=== PATIENT | female | born 1980 | race Caucasian/White ===

== ENCOUNTER 2016-03-21 08:07 | Emergency (ER) | payer BC, OTHER ==
[2016-03-21 08:28] VITALS: TEMP 98.5; BMI 22.6
[2016-03-21] MEDS ORDERED: ALBUTEROL SO4 2.5/IPRATROPIUM 0.5 INH SOL 3 ML VIAL.NEB. NEB ONE ×2 (09:13→09:25)
[2016-03-21] MEDS ORDERED: predniSONE 20 MG TABLET (UD) PO ONE (09:13)
--- NOTE | 2016-03-21 09:17 | PDOC ---
History of Present Illness - General Chief Complaint: Asthma Stated Complaint: SOB, ASTHMA Time Seen by Provider: 03/21/16 09:01 History Source: Patient Exam Limitations: No Limitations - History of Present Illness Initial Comments: 03/21/16 09:04 35-year-old female with history of asthma presents to the ED with complaints of shortness of breath on exertion, wheezing and cough since yesterday. Patient states took 4 DuoNeb times over the course with minimal movements and decided come to the ER today. Patient denies fever, chills, chest pain or palpitations. Patient states last time she was hospitalized was approximately 2 years ago but denies history of intubations. Timing/Duration: reports: yesterday Severity: reports: moderate Possible Cause: Yes: occasional episodes Modifying Factors: improves with: coughing Associated Symptoms: reports: cough, shortness of breath (with exertion), wheezing Past History - Past Medical History Allergies/Adverse Reactions: Allergies Allergy/AdvReac Type Severity Reaction Status Date / Time levofloxacin [From Levaquin] Allergy Verified 03/21/16 08:24 Home Medications: Ambulatory Orders Montelukast Na [Singulair -] 10 mg PO HS 12/26/13 Albuterol 0.083% Nebulizer Jaja [Ventolin 0.083% Nebulizer Soln -] 1 neb NEB Q6H PRN 30 Days 01/30/15 Albuterol Sulfate [Proair Respiclick] 90 mcg IH Q4HWA PRN 03/21/16 Budesonide/Formeterol Fumarate [SYMBICORT 160/4.5mcg -] 2 inh IH DAILY 03/21/16 Prednisone [Deltasone -] 40 mg PO DAILY #6 tablet 03/21/16 Asthma: Yes Thyroid Disease: Yes (HYPERTHYROID) - Surgical History Abdominal Surgery: Yes (marek inguinal hernia, left eye cataracts removal) - Reproductive History LMP Normal: Yes Is Patient Now?: No - Immunization History Immunization Up to Date: No - Psycho/Social/Smoking Cessation Hx Anxiety: No Suicidal Ideation: No Smoking Status: No Smoking History: Never smoked Have you smoked in the past 12 months: No Number of Cigarettes Smoked Daily: 0 Hx Alcohol Use: No Drug/Substance Use Hx: No Substance Use Type: None Hx Substance Use Treatment: No Patient Lives Alone: No Lives with/in: parents Respiratory Specific PMHX - Complaint Specific PMHX Bronchitis: Yes Review of Systems - Review of Systems Able to Perform ROS?: Yes Constitutional: No: Symptoms Reported HEENTM: No: Symptoms Reported Respiratory: Yes: Cough, SOB with Exertion, Wheezing Cardiac (ROS): No: Symptoms Reported ABD/GI: No: Symptoms Reported : No: Symptoms Reported Musculoskeletal: No: Symptoms Reported, Joint Stiffness Integumentary: No: Symptoms Reported Neurological: No: Symptoms reported Endocrine: No: Symptoms Reported Hematologic/Lymphatic: No: Symptoms Reported *Physical Exam - Vital Signs Last Vital Signs Temp Pulse Resp BP Pulse Ox 98.5 F 83 18 102/72 99 03/21/16 08:24 03/21/16 08:24 03/21/16 08:24 03/21/16 08:24 03/21/16 08:24 - Physical Exam General Appearance: Yes: Nourished, Appropriately Dressed. No: Apparent Distress HEENT: positive: EOMI, ILEANA. negative: Pale Conjunctivae Neck: positive: Normal Thyroid, Supple Respiratory/Chest: positive: Wheezing (on inspiration/expiration bilateral right greater than left). negative: Respiratory Distress, Accessory Muscle Use Cardiovascular: positive: Regular Rhythm, Regular Rate. negative: Murmur Gastrointestinal/Abdominal: positive: Soft. negative: Tenderness Extremity: positive: Normal Capillary Refill. negative: Pedal Edema Integumentary: positive: Normal Color, Warm, Moist Neurologic: positive: Motor Strength 5/5 (ambulatory) Medical Decision Making - Medical Decision Making 03/21/16 09:16 Pt with history of asthma complaining of shortness of breath wheezing and cough since yesterday. Patient on exam had bilateral wheezing without excessive muscle usage. patient speaking in full sentences. Patient O2 sat 100%. Respiratory rate 18-22. Patient ordered for by mouth steroids and DuoNeb here in the ER . 03/21/16 10:16 Pt states feeling much better and wants to go home. Patient will be given prednisone for discharge and has enough nebulized albuterol at home. Repeat vitals *DC/Admit/Observation/Transfer Diagnosis at time of Disposition: Asthma exacerbation Qualifiers: Asthma severity: mild persistent Qualified Code(s): J45.31 - Mild persistent asthma with (acute) exacerbation - Discharge Dispostion Disposition: HOME Condition at time of disposition: Improved - Prescriptions Prescriptions: Prednisone [Deltasone -] 40 mg PO DAILY #6 tablet - Patient Instructions Printed Discharge Instructions: Asthma -- Adult Additional Instructions: Please take prednisone starting tomorrow since you received the first dose here in the ER. Please use your nebulizer machine as needed for wheezing and coughing. If her symptoms return or worsen despite above recommendations return to the ED or follow-up with your PCP - Post Discharge Activity Work/School Note: Back to Work
[2016-03-21] MEDS ORDERED: predniSONE 20 MG TABLET (UD) ONE (09:24)
[2016-03-21 11:07] VITALS: BP 110/76; PULSE 84
== END 2016-03-21 11:07 | disposition home or self-care (01) ==
LOC: JER 08:07
PROC: 3E0F7GC Introduction of Other Therapeutic Substance into Respiratory Tract, Via Natural or Artificial Opening (ICD-10-PCS; principal; 2016-03-21)
DX: J45.31 Mild persistent asthma with (acute) exacerbation (principal); E05.90 Thyrotoxicosis, unspecified without thyrotoxic crisis or storm
CPT/HCPCS: 99282-25

== ENCOUNTER 2016-06-02 11:34 | Emergency (ER) | payer BC, OTHER ==
[2016-06-02 11:39] VITALS: BP 122/79; PULSE 92; TEMP 98; BMI 21.1
[2016-06-02] MEDS ORDERED: ACETAMINOPHEN 325 MG TABLET (FP) PO ONE (12:24)
--- NOTE | 2016-06-02 12:29 | PDOC ---
History of Present Illness - General Chief Complaint: Injury Stated Complaint: HEAD INJURY Time Seen by Provider: 06/02/16 12:06 History Source: Patient Exam Limitations: No Limitations - History of Present Illness Initial Comments: 06/02/16 12:24 While at work, patient was lifting a heavy box when she did not notice a low hanging shelf, and collided to the left upper aspect of her scalp to edge of a shelf. Was no LOC, however states had small bleed and thought should get checked 06/02/16 16:22 Occurred: reports: just prior to arrival, this morning Severity: reports: mild Pain Location: reports: head Method of Injury: Yes: direct blow Modifying Factors: improves with: None Loss of Consciousness: no loss of consciousness Associated Symptoms (Fall): denies symptoms Past History - Travel Traveled outside of the country in the last 30 days: No Close contact w/someone who was outside of country & ill: No - Past Medical History Allergies/Adverse Reactions: Allergies Allergy/AdvReac Type Severity Reaction Status Date / Time levofloxacin [From Levaquin] Allergy Verified 06/02/16 11:39 Home Medications: Ambulatory Orders NK [No Known Home Medication] 06/02/16 Asthma: Yes Thyroid Disease: Yes (HYPERTHYROID) - Surgical History Abdominal Surgery: Yes (marek inguinal hernia, left eye cataracts removal) - Immunization History Immunization Up to Date: No - Psycho/Social/Smoking Cessation Hx Anxiety: No Suicidal Ideation: No Smoking Status: No Smoking History: Never smoked Have you smoked in the past 12 months: No Number of Cigarettes Smoked Daily: 0 Information on smoking cessation initiated: No Hx Alcohol Use: No Drug/Substance Use Hx: No Substance Use Type: None Hx Substance Use Treatment: No Review of Systems - Review of Systems Able to Perform ROS?: Yes Is the patient limited Turkmen proficient: Yes Constitutional: Yes: See HPI. No: Symptoms Reported HEENTM: Yes: Symptoms Reported, See HPI. No: Eye Pain, Blurred Vision, Nose Congestion Respiratory: No: Symptoms reported ABD/GI: No: Symptoms Reported Musculoskeletal: Yes: See HPI. No: Symptoms Reported Integumentary: Yes: Symptoms Reported, See HPI, Lesions Neurological: Yes: Symptoms reported, See HPI, Headache All Other Systems: Reviewed and Negative (mild) *Physical Exam - Vital Signs Last Vital Signs Temp Pulse Resp BP Pulse Ox 98 F 92 H 18 122/79 98 06/02/16 11:36 06/02/16 11:36 06/02/16 11:36 06/02/16 11:36 06/02/16 11:36 - Physical Exam General Appearance: Yes: Nourished, Appropriately Dressed. No: Apparent Distress HEENT: positive: ILEANA, Normal ENT Inspection, TMs Normal (no hemotympanum, no drainage from nose or ears, no evidence of skull fracture), Pharynx Normal, Weinstein (mild erythema noted to left lateral brow without crepitus, step-offs, reproduced tenderness with deep palpation.), Other (superficial abrasion to front of scalp, approximately 1 cm, no active bleeding, no hematoma or contusion noted, no crepitus or step-offs) Neck: positive: Supple. negative: Tender, Lymphadenopathy (R), Lymphadenopathy (L) Respiratory/Chest: positive: Lungs Clear, Normal Breath Sounds Extremity: positive: Normal Capillary Refill, Normal Inspection, Normal Range of Motion Integumentary: positive: Normal Color, Dry, Warm Neurologic: positive: advanced registered nurse II-XII NML intact, Fully Oriented, Alert, Normal Mood/ Affect, Normal Response, Motor Strength 5/5 Progress Note - Progress Note Progress Note: Superficial head injury with superficial abrasion to scalp. No significant injury, will treat conservatively *DC/Admit/Observation/Transfer Diagnosis at time of Disposition: Superficial head injury Qualifiers: Encounter type: initial encounter Qualified Code(s): S00.90XA - Unspecified superficial injury of unspecified part of head, initial encounter Contusion Qualifiers: Encounter type: initial encounter Contusion area: head Contusion of head detail : scalp Qualified Code(s): S00.03XA - Contusion of scalp, initial encounter - Discharge Dispostion Admit: No - Referrals Referrals: Gracy Joseph [Primary Care Provider] - - Patient Instructions Printed Discharge Instructions: DI for Closed Head Injury Additional Instructions: Rest, avoid strenuous activity or exercise for the next 24-48 hours May use ice on contusions as needed. May use Tylenol or Motrin for pain relief Watch and seek evaluation for changes in behavior including crankiness, inconsolability, quietness/ sleepiness that is inappropriate, tiredness that is inappropriate, watch for worsening and changes of behavior. Seek immediate evaluation/return to emergency department for vomiting, mental status changes, pain that's out of proportion , bloody drainage from ears or nose. Followup with private physician as needed in one to 2 days for reevaluation - Post Discharge Activity Work/School Note: Back to Work
[2016-06-02] MEDS ORDERED: ACETAMINOPHEN 325 MG TABLET (FP) ONE (12:34)
== END 2016-06-02 12:38 | disposition home or self-care (01) ==
LOC: JERFT 11:34
DX: S00.03XA Contusion of scalp, initial encounter (principal); S00.01XA Abrasion of scalp, initial encounter; W22.09XA Striking against other stationary object, initial encounter; Y93.89 Activity, other specified; Y92.59 Other trade areas as the place of occurrence of the external cause; Y99.0 Civilian activity done for income or pay
CPT/HCPCS: 99281-25

== ENCOUNTER 2018-04-12 14:52 | Emergency (ER) | payer BC, OTHER ==
[2018-04-12] MEDS ORDERED: ALBUTEROL SO4 2.5/IPRATROPIUM 0.5 INH SOL 3 ML VIAL.NEB. NEB ONE ×2 (16:13→16:14)
[2018-04-12 16:14] VITALS: BP 155/79; PULSE 107; TEMP 98.5; BMI 21.9
--- NOTE | 2018-04-12 16:16 | PDOC ---
Rapid Medical Evaluation Chief Complaint: Asthma Time Seen by Provider: 04/12/18 16:12 Medical Evaluation: Allergies Allergy/AdvReac Type Severity Reaction Status Date / Time levofloxacin [From Levaquin] Allergy Verified 04/12/18 16:10 04/12/18 16:13 Pt c/o: cough, wheezing and chest tightness x 1 week with minimal improvment of meds, recently placed on qvar last week by needle setter Pt on brief exam: coarse BS, moving air to bases, 96% on RA, HR 103, Patient ordered for: jennifer Pt to proceed to the ED Discharge Disposition - Diagnosis Shortness of breath - Referrals - Patient Instructions - Post Discharge Activity
[2018-04-12] MEDS ORDERED: methylPREDNISolone NA SUCC 125 MG/2 ML VIAL IM ONE (17:17)
--- NOTE | 2018-04-12 17:24 | PDOC ---
History of Present Illness - General Chief Complaint: Asthma Stated Complaint: CHEST PAIN Time Seen by Provider: 04/12/18 16:12 History Source: Patient Exam Limitations: Clinical Condition - History of Present Illness Initial Comments: 04/12/18 17:19 Patient with history of asthma present with complaint of one-week history of persistent wheezing and chest tightness which has not been responding to home asthma medications. Patient report she has been having asthma exacerbations for 3 months now and had multiple medication changes by has not improved her asthma symptoms. Patient was seen by pulmonology week ago and given Qvar and Symbicort with home nebulizer for asthma. Patient report she has been on 3 courses of prednisone which improved her symptoms but comes back when she finished the course of the prednisone. Last prednisone treatment was a month ago. Patient denies fever, chills. Denies chest pain, dizziness, nausea or vomiting Timing/Duration: 1 week Past History - Past Medical History Allergies/Adverse Reactions: Allergies Allergy/AdvReac Type Severity Reaction Status Date / Time levofloxacin [From Levaquin] Allergy Verified 04/12/18 16:10 Home Medications: Ambulatory Orders Prednisone [Deltasone] 20 mg PO BID 5 Days #10 tablet 04/12/18 Asthma: Yes COPD: No Thyroid Disease: Yes (HYPERTHYROID) - Surgical History Abdominal Surgery: Yes (marek inguinal hernia, left eye cataracts removal) - Immunization History Immunization Up to Date: No - Suicide/Smoking/Psychosocial Hx Smoking Status: No Smoking History: Never smoked Have you smoked in the past 12 months: No Number of Cigarettes Smoked Daily: 0 Hx Alcohol Use: No Drug/Substance Use Hx: No Substance Use Type: None Hx Substance Use Treatment: No Review of Systems - Review of Systems Able to Perform ROS?: Yes Is the patient limited Serbian proficient: No Constitutional: No: Chills, Fever, Weakness HEENTM: Yes: Symptoms Reported, See HPI, Nose Congestion. No: Eye Pain, Blurred Vision, Tearing, Recent change in vision, Double Vision, Cataracts, Ear Pain, Ocular Prothesis, Ear Discharge, Nose Pain, Tinnitus, Nose Bleeding, Hearing Loss, Throat Pain, Throat Swelling, Mouth Pain, Dental Problems, Difficulty Swallowing, Mouth Swelling, Other Respiratory: Yes: Symptoms reported, See HPI, Shortness of Breath, Wheezing. No : Cough, Orthopnea, SOB with Exertion, SOB at Rest, Stridor, Productive cough, Hemoptysis, Other Cardiac (ROS): Yes: Symptoms Reported, See HPI, Chest Tightness. No: Chest Pain , Edema, Irregular Heart Rate, Lightheadedness, Palpitations, Syncope, Other ABD/GI: No: Nausea, Vomiting All Other Systems: Reviewed and Negative *Physical Exam - Vital Signs Last Vital Signs Temp Pulse Resp BP Pulse Ox 98.5 F 107 H 16 155/79 96 04/12/18 16:11 04/12/18 16:11 04/12/18 16:11 04/12/18 16:11 04/12/18 16:11 - Physical Exam Comments: 04/12/18 17:22 GENERAL: Well developed, well nourished. Awake and alert. No acute distress. HEENT: Normocephalic, atraumatic. PERRLA, EOMI. No conjunctival pallor. Sclera are non-icteric. Moist mucous membranes. Oropharynx is clear. NECK: Supple. Full ROM. CARDIOVASCULAR: Regular rate and rhythm. No murmurs, rubs, or gallops. Distal pulses are 2+ and symmetric. PULMONARY: Mild diffuse wheezing.No evidence of respiratory distress. No rales or rhonchi. ABDOMINAL: Soft. Non-tender. Non-distended. No rebound or guarding. No organomegaly. Normoactive bowel sounds. EXTREMITIES: No cyanosis. No clubbing. SKIN: Warm and dry. Normal capillary refill. No rashes. No jaundice. NEUROLOGICAL: Alert, awake, appropriate. Gait is normal without ataxia. PSYCHIATRIC: Cooperative. Good eye contact. Appropriate mood General Appearance: Yes: Nourished, Appropriately Dressed. No: Apparent Distress Moderate Sedation - Procedure Monitoring Vital Signs: Procedure Monitoring Vital Signs Temperature 98.5 F 04/12/18 16:11 Pulse Rate 107 H 04/12/18 16:11 Respiratory Rate 16 04/12/18 16:11 Blood Pressure 155/79 04/12/18 16:11 O2 Sat by Pulse Oximetry (%) 96 04/12/18 16:11 ED Treatment Course - RADIOLOGY Radiology Studies Ordered: Category Date Time Status CHEST PA & LAT [RAD] Stat Radiology 04/12/18 17:17 Ordered - Medications Given in the ED: ED Medications Discontinued Medications Generic Name Dose Route Start Last Admin Trade Name Freq PRN Reason Stop Dose Admin Albuterol/Ipratropium 1 amp 04/12/18 16:13 04/12/18 16:17 Duoneb - NEB 04/12/18 16:14 1 amp ONCE ONE Administration Medical Decision Making - Medical Decision Making 04/12/18 17:23 Patient with history of poorly controlled asthma present with complaint of one- week history of persistent wheezing, chest tightness intermittent cough which has not been responding to home asthma medications. Patient in no acute respiratory distress on presentation. Lung exam significant for mild diffuse wheezing with no rhonchi or rales. Nebulizer treatment with Atrovent and a protuberant abdomen given. Solu-Medrol 125 mg IM ordered for bronchospasm. Chest x-ray ordered to rule out pneumonia or any acute infiltrate. 04/12/18 17:34 Chest x-ray shows no acute infiltrate. Patient is stable for outpatient treatment on prednisone for 5 days with pulmonology follow-up. *DC/Admit/Observation/Transfer Diagnosis at time of Disposition: Shortness of breath, Asthma without status asthmaticus, Bronchospasm - Discharge Dispostion Disposition: HOME Condition at time of disposition: Stable Decision to Admit order: No - Prescriptions Prescriptions: Prednisone [Deltasone] 20 mg PO BID 5 Days #10 tablet - Referrals Referrals: Gracy Joseph [Primary Care Provider] - - Patient Instructions Printed Discharge Instructions: Asthma -- Adult Additional Instructions: Your chest x-ray shows no pneumonia or infiltrate. Take prescribed her prednisone as prescribed. Continue to use home asthma medication and nebulizer as needed. Follow-up with your maintenance clerk as soon as possible - Post Discharge Activity
[2018-04-12] MEDS ORDERED: methylPREDNISolone NA SUCC 125 MG/2 ML VIAL ONE (17:27)
== END 2018-04-12 18:34 | disposition home or self-care (01) ==
LOC: JERFT 14:52
PROC: 3E0F7GC Introduction of Other Therapeutic Substance into Respiratory Tract, Via Natural or Artificial Opening (ICD-10-PCS; principal; 2018-04-12)
PROC: 3E0233Z Introduction of Anti-inflammatory into Muscle, Percutaneous Approach (ICD-10-PCS; 2018-04-12)
DX: J45.909 Unspecified asthma, uncomplicated (principal)
CPT/HCPCS: 71046-TC-FY; 99281-25